=== PATIENT | female | born 1980 | race African-American/Black ===

== ENCOUNTER 2017-02-23 11:21 | Emergency (ER) | payer OTHER ==
[2017-02-23 11:29] VITALS: BP 124/89; PULSE 84; TEMP 98; BMI 39.4
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
== END 2017-02-23 12:19 | disposition home or self-care (01) ==
LOC: JERFT 11:21
DX: Z04.1 Encounter for examination and observation following transport accident (principal); V53.5XXA Driver of pick-up truck or van injured in collision with car, pick-up truck or van in traffic accident, initial encounter; Y92.488 Other paved roadways as the place of occurrence of the external cause; Y93.89 Activity, other specified; Y99.9 Unspecified external cause status
CPT/HCPCS: 99281-25

== ENCOUNTER 2018-11-21 10:01 | Emergency (ER) | payer OTHER | END 2018-11-21 12:30 | disposition home or self-care (01) | LOC: JERFT 10:01 ==